=== PATIENT | female | born 1930 | race Asian ===

== ENCOUNTER 2021-01-16 07:49 | Day surgery (SDC) | payer MEDICARE ==
[~2021-01-16 07:49] MED LIST: ACETAMINOPHEN 500 MG TAB PO SCH; BUPIVACAINE/PF (0.25%) 2.5 MG/ML 30 ML VIAL INFILTRATI ONE; LACTATED RINGERS 1,000 ML IV SCH; LIDOCAINE (1%) 10 MG/1 ML VIAL 20 ML MDV ONE; LIDOCAINE PF 100 MG/5 ML (CARDIAC SYRINGE) IV ONE; SODIUM CHLORIDE P/F VIAL 10 ML 10 ML ONE; propofoL 200 MG/20 ML VIAL IV ONE
[2021-01-16] MEDS ORDERED: LIDOCAINE (1%) 10 MG/1 ML VIAL 20 ML MDV ONE (08:15)
[2021-01-16] MEDS ORDERED: ONDANSETRON 4 MG/2 ML INJ IV PRN (09:05)
[2021-01-16] MEDS ORDERED: HYDROcodone/ACETAMINOPHEN 5-325 MG TAB PO PRN (09:05)
--- NOTE | 2021-01-16 09:05 | Anesthesia Consultation ---
Anesthesia Consult and Med Hx Date of service: 01/16/21 - Airway Anesthetic Teeth Evaluation: Partials ROM Head & Neck: Adequate Mental/Hyoid Distance: Adequate Mallampati Class: Class I Intubation Access Assessment: Probably Good - Pre-Operative Health Status ASA Pre-Surgery Classification: ASA2 Proposed Anesthetic Plan: MAC - Pulmonary Hx Smoking: Yes (quit many years ago) Hx Respiratory Symptoms: No - Cardiovascular System Hx Hypertension: Yes (took atenolol this morning) Hx Heart Attack/AMI: No Hx Percutaneous Transluminal Coronary Angioplasty (PTCA): No Hx Cardia Arrhythmia: No - Central Nervous System CVA: No Hx Back Pain: Yes - Endocrine Hx Renal Disease: No Hx Liver Disease: No Hx Insulin Dependent Diabetes: No Hx Non-Insulin Dependent Diabetes: No Hx Thyroid Disease: No - Other Systems Hx Obesity: No - Additional Comments Anesthesia Medical History Comments: No hx anesthetic complications. Patient requests MAC.
--- NOTE | 2021-01-16 09:05 | Anesthesia Day of Surgery ---
Anesthesia Day of Surgery - Day of Surgery Patient Examined: Yes Patient H&P Reviewed: Yes Patient is NPO: Yes
[2021-01-16] MEDS ORDERED: ePHEDrine SULFATE 50 MG/1 ML INJ ONE (10:13)
[2021-01-16] MEDS ORDERED: BUPIVACAINE/PF (0.25%) 2.5 MG/ML 30 ML VIAL INFILTRATI ONE (10:30)
[2021-01-16] MEDS ORDERED: LIDOCAINE (1%) 10 MG/1 ML VIAL 20 ML MDV INFILTRATI ONE (10:30)
--- NOTE | 2021-01-16 10:56 | Mammography Report ---
MAMMOGRAPHIC GUIDED RIGHT BREAST NEEDLE LOCALIZATION, 01/16/2021 CLINICAL INFORMATION / INDICATION: RT BREAST MASS. COMPARISON: None PROCEDURE: Risks, benefits and indications to the procedure were discussed with the patient. The patient agreed to proceed with both verbal and written consent. A timeout procedure was performed with 2 patient abdullahi ntifiers. The breast was prepped with betadine in the usual sterile fashion. Approximately 5 cc of Lidocaine 1% was used for local anesthesia. Under direct digital mammographic guidance, a localization wire was p laced in satisfactory position with distal tip traversing the targeted lesion. Post-biopsy mammogram confirms satisfactory positioning of the localization wire. The wire was secured to the skin with a s terile dressing. The patient tolerated procedure without difficulty. No complications were encountered. IMPRESSION: 1. Satisfactory mammographic guided wire localization of the right breast. Signer Name: Ziggy Brown Jr, MD Signed: 01/16/2021 10:51 AM Workstation Name: [id number]
[2021-01-16] MEDS ORDERED: NYSTATIN POWDER 15 GM TP ONE (11:00)
[2021-01-16] MEDS ORDERED: PHENYLEPHRINE/NS 1,000 MCG/10 ML SYRINGE (OR USE) IV ONE (11:08)
--- NOTE | 2021-01-16 11:22 | Short Stay Summary ---
Short Stay Documentation Date of service: 01/16/21 - History H&P: obtained from office - Allergies and Medications Current Medications: Allergies Penicillins Adverse Reaction (Severe, Verified 01/09/21 11:49) Swelling codeine Adverse Reaction (Intermediate, Verified 01/09/21 12:40) Rash SIMVASTATIN-ELEVATES KIDNEYLAB VALU Adverse Reaction (Severe, Uncoded 01/09/21 12:40) Unknown Home Medications Medication Instructions Recorded Confirmed Last Taken Type Acetaminophen [Aphen] 325 mg PO PRN 01/09/21 01/09/21 01/15/21 History Atenolol 50 mg PO DAILY 01/09/21 01/09/21 01/16/21 07:00 History Calcium Citrate/Vitamin D3 2 tab PO DAILY 01/09/21 01/09/21 01/15/21 History [Calcitrate + Vit D Caplet] Olmesartan-Hctz 20-12.5 mg Tab 20 mg PO DAILY 01/09/21 01/16/21 01/16/21 07:00 History [place]-3/Dha/Epa/Fish Oil [Fish Oil 1,200 mg PO DAILY 01/09/21 01/09/21 01/15/21 History 1,200 mg Softgel] Active Medications Acetaminophen (Acetaminophen 500 Mg Tab) 1,000 mg PO PREOP ELAINE Stop: 01/16/21 23:01 Last Admin: 01/16/21 09:13 Dose: 1,000 mg Documented by: Hydrocodone Bitart/Acetaminophen (Hydrocodone/Acetaminophen 5-325 Mg Tab) 2 each PO ONCE PRN PRN Reason: Pain, Moderate (4-6) Stop: 01/16/21 12:00 Lactated Ringer's (Lactated Ringers) 1,000 mls @ 100 mls/hr IV DIRECT ELAINE Stop: 01/16/21 23:59 Last Admin: 01/16/21 09:20 Dose: 100 mls/hr Documented by: Ondansetron HCl (Ondansetron 4 Mg/2 Ml Inj) 4 mg IV ONCE PRN PRN Reason: Nausea And Vomiting Stop: 01/16/21 12:00 - Brief post op/procedure progress note Date of procedure: 01/16/21 Pre-op diagnosis: Right upper outer quadrant ALH Post-op diagnosis: same Procedure: Right breast mass excisional biopsy Anesthesia: GETA Findings: Wire and clip present Surgeon: KIANA MULLINS Estimated blood loss: minimal Pathology: list Specimen disposition: to lab Condition: stable - Disposition Condition at discharge: Good Disposition: DC-01 TO HOME OR SELFCARE Short Stay Discharge Plan Activity: other (no heavy lifting) Diet: regular Wound: keep clean and dry (may shower in 48 hours; no baths, wear breast binder) Follow up with: KIANA MULLINS MD [Staff Physician] - 7 Days
--- NOTE | 2021-01-16 11:37 | Operative Report ---
Operative Report Operative Report: Operative Report: January 16, 2021 Preoperative diagnosis:Right breast ALH of the upper outer quadrant Postoperative diagnosis: Same Procedure: Right breast ALH needle localization excisional biopsy Surgeon: Yue Bradshaw MD Anesthesia: Local MAC Findings: Right wire and clip present within radiograph specimen Complications: None EBL: Minimal (less than 25 cc) Disposition: PACU in good condition Indications for operative procedure: This is an 89 year old lady with recent abnormal right mammogram of suspcious calcifications. Recent right stereotactic biopsy performed with findings of ALH. Surgical recommendations were to proceed with an excisional biopsy to rule out malignancy given breast cancer risk assocation of to ALH; close observation discussed as well and she wished to proceed with surgery. She wished to proceed with the above procedure. Procedure in detail: The patient was taken to radiology for wire placement for localization known area of concern. Patient was then taken to the operating room. Local MAC anesthesia was administered. Right breast and axilla were prepped and draped in the normal sterile operative fashion. The wire was identified around 9:00 position 5-7 cm FN. Timeout was performed. Attention was then taken towards the right breast. Breast cavity and skin at incision area was anesthesized wtih 1% lidocaine mixed with quarter percent marcaine without epinephrine; breast incision was made with a 15 blade knife and dissection taken down to subcutaneous tissues. First began raising of the lateral flap with removal of the wire from the skin and dissection was taken down posteriorly past the wire, followed by raising of the superior flap, inferior flap and medial flap with all flaps taken down posteriorly past the wire. The breast area of concern was appropriately removed posteriorly with the aid of the Bovie cautery. The wire was not encountered. Specimen was marked and then sent to pathology and radiology; radiograph specimen with wire and x1 clip present. Breast cavity was irrigated and hemostasis was obtained. The posterior deep breast tissues were approximated and closed using interrupted 3-0 Vicryl. The subcutaneous tissues were approximated and closed using interrupted 3-0 Vicryl followed by closing of the skin with a running 4-0 Monocryl and skin affix. The patient tolerated surgery very well and she was awaken from anesthesia without any complication and transported to PACU in good condition.
--- NOTE | 2021-01-16 12:06 | Post Anesthesia Evaluation ---
- Post Anesthesia Evaluation Patient Participated: Yes Airway Patent: Yes Stable Respiratory Function: Yes Nausea/Vomiting: No Temp > 96.8F: Yes Pain Manageable: Yes Adequeate Hydration: Yes Anesthesia Complications: No
[2021-01-16 12:36] VITALS: BP 116/49
--- NOTE | 2021-01-16 14:44 | Mammography Report ---
RIGHT BREAST SPECIMEN RADIOGRAPH, 01/16/2021 INDICATION: Right breast target lesion: . COMPARISON: Needle localization films performed earlier today FINDINGS: The previously localized target lesion is present in its entirety in the submitted specimen. The localization wire is present. IMPRESSION: 1. Radiographic evidence of satisfactory excision of the target lesion. Signer Name: Ziggy Brown Jr, MD Signed: 01/16/2021 2:40 PM Workstation Name: [id number]
== END 2021-01-16 12:15 | disposition home or self-care (01) ==
LOC: OR 07:49
PROVIDERS: ATTEND Surgery
DX: N63.11 Unspecified lump in the right breast, upper outer quadrant (principal); R92.1 Mammographic calcification found on diagnostic imaging of breast; Z20.822 Contact with and (suspected) exposure to COVID-19; E78.00 Pure hypercholesterolemia, unspecified; I10 Essential (primary) hypertension; M19.90 Unspecified osteoarthritis, unspecified site; F32.9 Major depressive disorder, single episode, unspecified; Z88.0 Allergy status to penicillin; Z88.5 Allergy status to narcotic agent; Z88.8 Allergy status to other drugs, medicaments and biological substances; Z79.899 Other long term (current) drug therapy; Z87.891 Personal history of nicotine dependence; Z98.41 Cataract extraction status, right eye; Z98.42 Cataract extraction status, left eye; Z87.440 Personal history of urinary (tract) infections; Z91.81 History of falling; Z98.890 Other specified postprocedural states
CPT/HCPCS: 19125; 19281; 76098; 88307; A4648; J2001; J2370; J2704; J7120; U0003